=== PATIENT | male | born 1955 | race Caucasian/White ===

== ENCOUNTER 2020-10-08 14:22 | Emergency (ER) | payer BC, OTHER ==
[2020-10-08] MEDS ORDERED: Ondansetron ODT 8 MG TAB ONE (15:30)
[2020-10-08] MEDS ORDERED: Lidocaine 1% w/Epinephrine 1:100K 20 ML VIAL ONE (15:48)
[2020-10-08] MEDS ORDERED: Boostrix 0.5 ML (Tdap) VIAL ONE (17:01)
[2020-10-08] MEDS ORDERED: Acetaminophen 500 MG TAB ONE (18:33)
== END 2020-10-08 18:02 | disposition home or self-care (01) ==
LOC: ERS 14:22
DX: S01.81XA Laceration without foreign body of other part of head, initial encounter (principal); I47.1 Supraventricular tachycardia; I11.0 Hypertensive heart disease with heart failure; I50.9 Heart failure, unspecified; Z87.19 Personal history of other diseases of the digestive system; Z87.891 Personal history of nicotine dependence; Z79.899 Other long term (current) drug therapy; Z79.84 Long term (current) use of oral hypoglycemic drugs; V89.2XXA Person injured in unspecified motor-vehicle accident, traffic, initial encounter
CPT/HCPCS: 12013; 70450; 90471; 90715; G0390; Q0162